=== PATIENT | female | born 1995 | race Caucasian/White ===

== ENCOUNTER 2019-12-21 08:19 | Emergency (ER) | payer OTHER ==
[~2019-12-21] VITALS: Ht 170.2 cm; Wt 54.4 kg
[2019-12-21] MEDS ORDERED: ZYRTEC10 M5 PO (08:33)
[2019-12-21 09:45] VITALS: BP 142/85
== END 2019-12-21 09:45 | disposition home or self-care (01) ==
LOC: M.ERS 08:19
DX: S61.511A Laceration without foreign body of right wrist, initial encounter (principal); Z79.899 Other long term (current) drug therapy; W45.8XXA Other foreign body or object entering through skin, initial encounter; Y93.89 Activity, other specified; Y92.89 Other specified places as the place of occurrence of the external cause; Y99.0 Civilian activity done for income or pay